=== PATIENT | male | born 1965 | race Caucasian/White ===

== ENCOUNTER → 2023-11-28 11:51 | Outpatient (REF) | payer BC, SELFPAY ==
[2023-11-29 14:27] LABS: tTG IgA Antibody 5.5 EU/ml (0-19); tTG IgG Antibody 15.2 EU/ml (0-19)
[2023-11-30 00:37] LABS: IgA 206 mg/dl (70-400)
[2023-12-01 00:24] LABS: Endomysial IgA Antibody Titer <1:10 (<1:10)
== END ==
LOC: REG 11:51
PROVIDERS: ATTENDING PHYSICIAN Nurse Practitioner Family; FAMILY PHYSICIAN Ophthalmology
DX: R10.9 Unspecified abdominal pain (principal)
CPT/HCPCS: 36415; 82784; 83516; 86231

== ENCOUNTER 2024-10-03 06:19 | Day surgery (SDC) | payer BC, SELFPAY | END 2024-10-03 11:29 | disposition home or self-care (01) | LOC: GI 06:19 | PROVIDERS: ATTENDING PHYSICIAN Internal Medicine Gastroenterology; FAMILY PHYSICIAN Family Medicine | DX: R63.4 Abnormal weight loss (principal); R19.7 Diarrhea, unspecified; K64.8 Other hemorrhoids; K57.30 Diverticulosis of large intestine without perforation or abscess without bleeding; D49.0 Neoplasm of unspecified behavior of digestive system; K44.9 Diaphragmatic hernia without obstruction or gangrene; K31.89 Other diseases of stomach and duodenum; K63.5 Polyp of colon; K29.50 Unspecified chronic gastritis without bleeding | CPT/HCPCS: 45381; 45380; 43239; 88305; 88342 ==

== ENCOUNTER 2024-12-05 06:09 | Day surgery (SDC) | payer BC, SELFPAY ==
[2024-12-05 08:16] VITALS: BP 126/75
[2024-12-05 08:21] VITALS: BMI 17.9
[2024-12-05 10:40] VITALS: BP 104/82
[2024-12-05 10:45] VITALS: BP 108/96
[2024-12-05 11:00] VITALS: BP 109/83
[2024-12-05 11:09] VITALS: BP 117/81
== END 2024-12-05 11:18 | disposition home or self-care (01) ==
LOC: GI 06:09
PROVIDERS: ATTENDING PHYSICIAN Internal Medicine Gastroenterology
DX: K63.5 Polyp of colon (principal); K64.0 First degree hemorrhoids
CPT/HCPCS: 45349; 88305

== ENCOUNTER → 2024-12-20 06:45 | Outpatient (REF) | payer BC, SELFPAY | LOC: REG 06:45 | PROVIDERS: ATTENDING PHYSICIAN Internal Medicine Gastroenterology; FAMILY PHYSICIAN Family Medicine | DX: Z87.19 Personal history of other diseases of the digestive system (principal); R19.7 Diarrhea, unspecified; K58.0 Irritable bowel syndrome with diarrhea | CPT/HCPCS: 36415; 82653; 83993; 87045; 87046; 87177; 87209; 87324; 87328; 87329; 87427; 87449 ==